=== PATIENT | female | born 1965 | race Two or more races ===

== ENCOUNTER → 2018-07-11 | Day surgery (SDC) | payer OTHER ==
--- NOTE | 2018-07-13 13:36 | PATH ---
Cytology Non-Gynecological Report Patient Name: SILVANO MATAMOROS [facility]. Rec. #: [id number] /Age/Gender: 1965 (Age: 52) / F Account: [id number] Location: RADIOLOGY INTER Taken: 07/11/2018 Received: 07/11/2018 Reported: 07/13/2018 Physicians: Sridevi Reinoso M.D. Specimen(s) Received RIGHT THYROID FNA Clinical History Right thyroid nodule Final Diagnosis THYROID, RIGHT, FINE NEEDLE ASPIRATION: SATISFACTORY FOR EVALUATION [place] CLASS II: BENIGN SMALL FOLLICULAR CELLS, MANY MACROPHAGES AND COLLOID PRESENT, CONSISTENT WITH A BENIGN FOLLICULAR NODULE. Electronically Signed Deja Chow M.D. Gross Description Received are eight direct smears, four of which are air-dried and Diff-Quik stained, and four of which are alcohol fixed and Pap stained. Also received is 20 ml of bloody formalin from which one cellblock is prepared.
== END | disposition home or self-care (01) ==
LOC: JRADIR 09:13
PROVIDERS: ATTEND Otolaryngology Facial Plastic Surgery
PROC: 0G9K3ZX Drainage of Thyroid Gland, Percutaneous Approach, Diagnostic (ICD-10-PCS; principal; 2018-07-11)
DX: E04.1 Nontoxic single thyroid nodule (principal)
CPT/HCPCS: 76942; 88173; 88305-TC

== ENCOUNTER 2019-06-05 04:08 | Emergency (ER) | payer OTHER ==
[2019-06-05 04:31] VITALS: BMI 33.5
[2019-06-05] MEDS ORDERED: ASPIRIN 325 MG TABLET PO ONE (07:51)
[2019-06-05] MEDS ORDERED: FAMOTIDINE 20 MG/50 ML IVPB 20 MG/50 ML MG IVPB ONE ×2 (07:52→08:02)
[2019-06-05] MEDS ORDERED: ASPIRIN 81 MG CHEWABLE TABLETS ONE (08:01)
[2019-06-05 09:00] LABS: BASO % 0.6 % (0-2.0); EOS % 1.2 % (0-4.5); HEMATOCRIT 36.8 % (32.4-45.2); HEMOGLOBIN 12.5 GM/dL (10.7-15.3); LYMPH % 28.7 % (8-40); MCH 32.4 pg (25.7-33.7); MEAN CELL VOLUME 95.3 fl (80-96); MEAN PLT VOLUME 9.2 fl (7.5-11.1); MONO % 4.9 % (3.8-10.2); NEUT % 64.6 % (42.8-82.8); PLATELET COUNT 226 K/MM3 (134-434); RBC 3.86 M/mm3 (3.60-5.2); RDW 12.7 % (11.6-15.6); WHITE BLOOD COUNT 6.3 K/mm3 (4.0-10.0)
--- NOTE | 2019-06-05 09:13 | PDOC ---
Documentation entered by Odalis Nieto SCRIBE, acting as scribe for Omar Cifuentes MD. Omar Cifuentes MD: This documentation has been prepared by the Emilia nava Sammi, SCRIBE, under my direction and personally reviewed by me in its entirety. I confirm that the documentation accurately reflects all work, treatment, procedures, and medical decision making performed by me. History of Present Illness - General Chief Complaint: Pain Stated Complaint: CHEST DISCOMFORT Time Seen by Provider: 06/05/19 07:15 - History of Present Illness Initial Comments: 06/05/19 08:14 The patient is a 53 year old female, with PMH of asthma, H. Pylori(current antibiotics for past 5 days), who was BIBA for evaluation of sudden onset left sided chest heaviness, 2 episodes at 2am & 5am lasting 5-10min, with radiation to left back down to left lower extremity, with associated diaphoresis and nausea. Denies shortness of breath, headache and dizziness. Denies fever, cough, and chills. Allergies: morphine Surgical hx: cholecystectomy PCP: Koki Past History - Past Medical History Allergies/Adverse Reactions: Allergies Allergy/AdvReac Type Severity Reaction Status Date / Time morphine Allergy Severe Swelling Verified 06/05/19 04:30 Home Medications: Ambulatory Orders Omeprazole 20 mg PO DAILY 06/05/19 metroNIDAZOLE [Metronidazole] 500 mg PO TID 06/05/19 Asthma: Yes COPD: No GI Disorders: Yes (GERD,H.Pylori) - Surgical History Cholecystectomy: Yes - Psycho Social/Smoking Cessation Hx Smoking History: Never smoked Have you smoked in the past 12 months: No Information on smoking cessation initiated: No Hx Alcohol Use: No Drug/Substance Use Hx: No Substance Use Type: None Review of Systems - Review of Systems Comments:: 06/05/19 08:15 CONSTITUTIONAL: +diaphoresis. No fever, no chills, no fatigue EYES: No visual changes ENT: No ear pain, no sore throat CARDIOVASCULAR: +chest heaviness radiate to left back&LLE. no palpitations RESPIRATORY: No cough, no SOB GI: +nausea. No abdominal pain, no vomiting, no constipation, no diarrhea GENITOURINARY: No dysuria, no frequency, no hematuria MUSKULOSKELETAL: No backpain, no joint pain, no myalgias SKIN: No rash NEURO: No headache *Physical Exam - Vital Signs Last Vital Signs Temp Pulse Resp BP Pulse Ox 97.6 F 86 18 124/76 97 06/05/19 04:24 06/05/19 04:24 06/05/19 04:24 06/05/19 04:24 06/05/19 04:24 - Physical Exam 06/05/19 07:53 CONSTITUTIONAL: Well-appearing; well-nourished; in no apparent distress EYES: PERRL; EOM intact ENMT: External appears normal; normal oropharynx NECK: Supple; non-tender; no cervical lymphadenopathy CARD: Normal S1, S2; no murmurs, rubs, or gallops RESP: Normal chest excursion with respiration; breath sounds clear and equal bilaterally; no wheezes, rhonchi, or rales ABD: Soft, non-distended; non-tender; no palpable organomegaly, no palpable hernias EXT: Normal ROM in all four extremities; non-tender to palpation; distal pulses intact SKIN: Warm, dry, no rash NEURO: No focal neurological deficiencies. Heart Score/ECG Review - History History: Slightly suspicious - Electrocardiogram EKG: Normal - Age Age: 45-65 - Risk Factors Risk Factors Heart Score: No Hx Hypercholesterolemia, No Hx Hypertension, No Hx Diabetes, No Smoking History, No Positive family hx of cardiac disease, No Hx Obesity Based on the list above the patient has:: No risk factors known - Troponin Troponin: </= normal limit - Score Heart Score - Total: 1 - ECG Impressions Comment:: 06/05/19 07:51 normal sinus rhythm normal ECG ED Treatment Course - LABORATORY CBC & Chemistry Diagram: 06/05/19 08:35 06/05/19 08:35 - ADDITIONAL ORDERS Additional order review: Laboratory Results 06/05/19 06/05/19 06/05/19 11:07 08:35 08:35 Sodium 144 Potassium 4.2 Chloride 111 H Carbon Dioxide 26 Anion Gap 6 L BUN 12.5 Creatinine 0.8 Est GFR (CKD-EPI)AfAm 96.87 Est GFR (CKD-EPI)NonAf 83.58 Random Glucose 111 H Calcium 9.0 Total Bilirubin 0.5 AST 28 ALT 36 Alkaline Phosphatase 88 Creatine Kinase 102 96 Troponin I < 0.02 < 0.02 Total Protein 7.0 Albumin 3.4 06/05/19 08:35 RBC 3.86 MCV 95.3 MCHC 34.0 RDW 12.7 D MPV 9.2 Neutrophils % 64.6 D Lymphocytes % 28.7 D Monocytes % 4.9 Eosinophils % 1.2 D Basophils % 0.6 - RADIOLOGY Radiology Studies Ordered: Category Date Time Status CHEST X-RAY PORTABLE* [RAD] Stat Radiology 06/05/19 07:51 Completed - Medications Given in the ED: ED Medications Discontinued Medications Generic Name Dose Route Start Last Admin Trade Name Ayala PRN Reason Stop Dose Admin Aspirin 325 mg 06/05/19 07:51 06/05/19 08:39 Asa - PO 06/05/19 07:52 325 mg ONCE ONE Administration Famotidine/Sodium Chloride 20 mg in 50 mls @ 100 mls/hr 06/05/19 07:52 08:39 Pepcid 20 Mg Premixed Ivpb - IVPB 06/05/19 08:21 100 mls/hr ONCE ONE Administration Medical Decision Making - Medical Decision Making 06/05/19 09:13 Patient is a 53-year-old female with history of asthma who presents to the ER with 2 periods of atypical chest discomfort that have now resolved. In the ER, patient is asymptomatic, resting comfortably; vital signs are noted. EKG reveals no evidence of acute ischemia or dysrhythmia. First set of cardiac enzymes within normal limit. Patient's heart score is noted to be 1. Will obtain serial cardiac enzymes and if negative, will discuss with PMD and likely discharge for outpatient testing. 06/05/19 12:51 Patient reassessed. Patient is resting comfortably and complaining of mild epigastric pain at this time. Abdominal exam reveals no focal tenderness. Repeat EKG is within normal limit. Repeat cardiac enzymes are within normal limit as well. I do not suspect ACS at this time. Patient's heart score remains 1. She is safe for outpatient follow-up for further testing. Discharge - Discharge Information Problems reviewed: Yes Clinical Impression/Diagnosis: Chest pain Qualifiers: Chest pain type: unspecified Qualified Code(s): R07.9 - Chest pain, unspecified Disposition: HOME - Follow up/Referral Referrals: Xiao Telles MD [Staff Physician] - - Patient Discharge Instructions Patient Printed Discharge Instructions: DI for Chest Pain - Post Discharge Activity Work/Back to School Note: Back to Work
[2019-06-05 10:01] LABS: ALBUMIN 3.4 g/dl (3.4-5.0); BILIRUBIN,TOTAL 0.5 mg/dL (0.2-1); BLOOD UREA NITROGEN 12.5 mg/dL (7-18); CREATININE 0.8 mg/dL (0.55-1.3); POTASSIUM 4.2 mmol/L (3.5-5.1)
[2019-06-05 13:03] VITALS: BP 126/74; PULSE 82; TEMP 97.8
--- NOTE | 2019-06-05 14:56 | EKG ---
Test Reason : Blood Pressure : / mmHG Vent. Rate : 068 BPM Atrial Rate : 068 BPM P-R Int : 152 ms QRS Dur : 070 ms QT Int : 408 ms P-R-T Axes : 051 028 038 degrees QTc Int : 433 ms NORMAL SINUS RHYTHM LOW VOLTAGE QRS BORDERLINE ECG WHEN COMPARED WITH ECG OF 05-JUN-2019 06:07, NO SIGNIFICANT CHANGE WAS FOUND Confirmed by OSIEL BRYAN MD ([id number]) on 06/05/2019 2:55:55 PM Referred By: Confirmed By:OSIEL BRYAN MD
--- NOTE | 2019-06-05 14:56 | EKG ---
Test Reason : Blood Pressure : / mmHG Vent. Rate : 074 BPM Atrial Rate : 074 BPM P-R Int : 156 ms QRS Dur : 080 ms QT Int : 406 ms P-R-T Axes : 054 032 037 degrees QTc Int : 450 ms NORMAL SINUS RHYTHM NORMAL ECG NO PREVIOUS ECGS AVAILABLE Confirmed by OSIEL BRYAN MD ([id number]) on 06/05/2019 2:55:50 PM Referred By: Confirmed By:OSIEL BRYAN MD
== END 2019-06-05 13:04 | disposition home or self-care (01) ==
LOC: JER 04:08
PROC: 3E033GC Introduction of Other Therapeutic Substance into Peripheral Vein, Percutaneous Approach (ICD-10-PCS; principal; 2019-06-05)
DX: R07.9 Chest pain, unspecified (principal); Z88.6 Allergy status to analgesic agent; J45.909 Unspecified asthma, uncomplicated
CPT/HCPCS: 36415; 71045-TC-FY; 80053; 82550; 84484; 85025; 93005; 93010; 99284-25